=== PATIENT | female | born 1945 | race Caucasian/White ===

== ENCOUNTER 2017-06-09 14:01 | Outpatient (CLI) | payer OTHER, BC ==
[~2017-06-09 14:01] MED LIST: ZERTEC; [UNRECOGNIZED DRUG - OTHER]
== END 2017-06-09 20:10 | disposition home or self-care (01) ==
LOC: SMA 14:01
PROVIDERS: ATTEND Family Medicine
DX: N63 Unspecified lump in breast (principal); R92.2 Inconclusive mammogram; Z85.3 Personal history of malignant neoplasm of breast
CPT/HCPCS: 76642; G0204

== ENCOUNTER 2019-02-26 21:00 | Emergency (ER) | payer OTHER, BC ==
[~2019-02-26] VITALS: Ht 162.6 cm; Wt 94.8 kg
[2019-02-26 21:16] VITALS: BP_SYST 155
[2019-02-27] MEDS ORDERED: KETOROLAC TROMETHAMINE 30 MG VIAL IM ONE (00:30)
[2019-02-27 01:28] VITALS: BP_SYST 142
== END 2019-02-27 01:28 | disposition home or self-care (01) ==
LOC: SED 21:00
DX: S92.354A Nondisplaced fracture of fifth metatarsal bone, right foot, initial encounter for closed fracture (principal); S93.401A Sprain of unspecified ligament of right ankle, initial encounter; I10 Essential (primary) hypertension; Z88.5 Allergy status to narcotic agent; Z88.8 Allergy status to other drugs, medicaments and biological substances; Z85.3 Personal history of malignant neoplasm of breast; Z87.442 Personal history of urinary calculi; W10.9XXA Fall (on) (from) unspecified stairs and steps, initial encounter; Y93.89 Activity, other specified; Y92.89 Other specified places as the place of occurrence of the external cause; Y99.8 Other external cause status
CPT/HCPCS: 73610; 96372; 99283; J1885